=== PATIENT | female | born 1970 | race African-American/Black ===

== ENCOUNTER 2019-01-21 14:11 | Emergency (ER) | payer OTHER ==
[~2019-01-21] VITALS: Ht 180.3 cm; Wt 72.6 kg
--- NOTE | 2019-01-21 14:41 | NUR ---
ED Nurse Note: pt down to CT
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
[2019-01-21 15:22] VITALS: BP 127/89
[2019-01-21] MEDS ORDERED: NAPROXEN500 M2 ORAL (15:25)
[2019-01-21] MEDS ORDERED: ROBAXIN500 MG PO (15:25)
--- NOTE | 2019-01-21 15:27 | NUR ---
ED Nurse Note: pt back from ct er pa re-eval done . lapd at bedside [id number] division serial # [id number]
[2019-01-21 16:10] VITALS: BP 125/86
--- NOTE | 2019-01-21 16:13 | NUR ---
ED Nurse Note: pt's mother at bedside pt given aci and script verbalized understanding ambulated out of er with strong and steady gait with mother at side.
== END 2019-01-21 15:55 | disposition home or self-care (01) ==
LOC: EDBD 14:11 → EMR 14:42
DX: S00.93XA Contusion of unspecified part of head, initial encounter (principal); S16.1XXA Strain of muscle, fascia and tendon at neck level, initial encounter; V43.62XA Car passenger injured in collision with other type car in traffic accident, initial encounter; Y92.410 Unspecified street and highway as the place of occurrence of the external cause
CPT/HCPCS: 70450; 99284